=== PATIENT | male | born 1955 | race Caucasian/White ===

== ENCOUNTER 2016-04-28 06:13 | Day surgery (SDC) | payer MEDICARE, OTHER ==
[~2016-04-28] VITALS: Ht 175.3 cm; Wt 116.4 kg
[~2016-04-28 06:13] MED LIST: ASPI81TA3 PO; CIPR500T4 PO; METF500T4 PO; METR500T PO; TRAM50TA2 PO
[2016-04-28 07:37] VITALS: Ht 175.3 cm; Wt 116.4 kg
[2016-04-28 07:50] VITALS: BP 146/83; PULSE 83; RESP 24
[2016-04-28] MEDS ORDERED: EZET10TA3 PO (07:51)
[2016-04-28] MEDS ORDERED: ADV10050 INHALATION (07:51)
[2016-04-28] MEDS ORDERED: MONT4GRA PO (07:51)
[2016-04-28] MEDS ORDERED: ALBU18HF INHALATION (07:51)
[2016-04-28] MEDS ORDERED: PROPOFOL 20 ML ONE (07:51)
[2016-04-28] MEDS ORDERED: BENA5TAB2 PO (07:51)
[2016-04-28] MEDS ORDERED: METO-448 PO (07:51)
[2016-04-28] MEDS ORDERED: FENTAnyl 50 MCG/ML VIAL ONE (07:52)
[2016-04-28] MEDS ORDERED: MIDAZOLAM 1 MG/ML 2 ML INJ ONE (07:52)
[2016-04-28] MEDS ORDERED: PROPOFOL 40 ML ONE (07:56)
[2016-04-28 09:13] VITALS: BP 113/66; PULSE 73; RESP 18
--- NOTE | 2016-04-28 17:57 | GILP ---
DATE OF PROCEDURE: 04/28/2016 NAME OF PROCEDURES: 1. Colonoscopy, biopsy and polypectomy. 2. Clipping of the polypectomy site. INDICATION FOR THE PROCEDURE: Mr. Annalise Alvarado is a 61-year-old male patient who had change i n the bowel habit and left lower quadrant abdominal pain. The patient never had screening colonosco py. The procedure and possible complications are well explained to the patient, he understood and consen kait to the procedure. DESCRIPTION OF PROCEDURE: Under the influence of anesthesia, the colonoscope was carefully introduc ed in the rectum and under direct vision, it was advanced all the way to the cecum. FINDINGS: The patient had 2 right colon polyps and one of them was removed using the biopsy forceps , another one with snare and electrocautery. The patient had some bleeding after polypectomy and c lipping of the polypectomy site was done to stop the bleeding. The patient was noted to have divert iculosis of the colon. He also had internal and external hemorrhoids. The patient tolerated the procedure very well and there was no complication from the procedure. At the end of the procedure, he was awake with stable vital signs and he was discharged home to the car e of his family. IMPRESSION: 1. Colonoscopy all the way to the cecum. 2. Two right colon polyps were removed, one with the biopsy forceps and the other one with snare an d electrocautery. 3. Clipping of the polypectomy site was done to stop the bleeding. 4. Diverticulosis of the colon. 5. Internal and external hemorrhoids. PLAN: 1. Await histopathology report. 2. Next screening colonoscopy in 5 years. Dictated By: BEATRICE KAUR/WILLIE Conf#: [id number] DID#: [id number] CC: BEATRICE SWENSON MD;*EndCC*
== END 2016-04-28 12:09 | disposition home or self-care (01) ==
LOC: GIL 06:13
PROVIDERS: ATTEND Internal Medicine Gastroenterology
DX: Z12.11 Encounter for screening for malignant neoplasm of colon (principal); K63.5 Polyp of colon; K57.90 Diverticulosis of intestine, part unspecified, without perforation or abscess without bleeding; K64.4 Residual hemorrhoidal skin tags; K64.8 Other hemorrhoids; I10 Essential (primary) hypertension; E11.9 Type 2 diabetes mellitus without complications; E66.9 Obesity, unspecified; Z68.37 Body mass index [BMI] 37.0-37.9, adult
CPT/HCPCS: 45380; 82962; 88305; J2250; J3010

== ENCOUNTER 2016-07-06 22:50 | Emergency (ER) | payer MEDICARE, OTHER ==
[~2016-07-06] VITALS: Ht 175.3 cm; Wt 120.5 kg
[~2016-07-06 22:50] MED LIST changes: +ADV10050 INHALATION; +ALBU18HF INHALATION; +BENA5TAB2 PO; -CIPR500T4 PO; +EZET10TA3 PO; +METO-448 PO; -METR500T PO; +MONT4GRA PO
[2016-07-06 22:54] VITALS: Ht 175.3 cm; Wt 120.5 kg
[2016-07-06] MEDS ORDERED: ASPIRIN 81 MG TAB PO STA (23:14)
[2016-07-06] MEDS ORDERED: FAMOTIDINE 20 MG INJ IV ONE (23:30)
[2016-07-06] MEDS ORDERED: LIDOCAINE/MYLANTA 40 ML BTL PO ONE (23:30)
[2016-07-06 23:32] LABS: ADD SCAN DIFF NO
[2016-07-06 23:36] LABS: BASOPHILS % 0.5 % (0.0-2.0); EOSINOPHILS # 0.3 10^3/ul (0.0-0.5); EOSINOPHILS % 3.6 % (0.0-7.0); HEMATOCRIT 42.8 % (42.0-52.0); HEMOGLOBIN 13.6 g/dl (14.0-18.0); LYMPHOCYTES % 26.1 % (15.0-51.0); MEAN CORPUSCULAR HEMOGLOBIN 28.4 pg (29.0-33.0); MEAN CORPUSCULAR HGB CONC 31.8 g/dl (32.0-37.0); MEAN CORPUSCULAR VOLUME 89.4 fl (82.0-101.0); MEAN PLATELET VOLUME 10.2 fl (7.4-10.4); MONOCYTE # 0.7 10^3/ul (0.3-0.9); MONOCYTES % 8.4 % (0.0-11.0); NEUTROPHIL # 4.8 10^3/ul (1.6-7.5); NEUTROPHILS % 61.3 % (39.0-77.0); PLATELET COUNT 227 10^3/UL (140-415); RED BLOOD COUNT 4.79 10^6/ul (4.70-6.10); RED CELL DISTRIBUTION WIDTH 14.3 % (11.5-14.5); WHITE BLOOD COUNT 7.8 10^3/ul (4.8-10.8)
[2016-07-06 23:50] LABS: ALANINE AMINOTRANSFERASE 47 IU/L (13-69); ALBUMIN 4.3 g/dl (3.3-4.9); ALBUMIN/GLOBULIN RATIO 1.19; ALKALINE PHOSPHATASE 72 IU/L (42-121); ANION GAP 13 (8-16); ASPARTATE AMINO TRANSFERASE 39 IU/L (15-46); BILIRUBIN,INDIRECT 0.3 mg/dl (0-1.1); BILIRUBIN,TOTAL 0.3 mg/dl (0.2-1.3); BLOOD UREA NITROGEN 17 mg/dl (7-20); CALCIUM 9.5 mg/dl (8.4-10.2); CARBON DIOXIDE 29 mmol/L (21-31); CHLORIDE 100 mmol/L (97-110); CREATININE 0.79 mg/dl (0.61-1.24); GLUCOSE 174 mg/dl (70-220); POTASSIUM 4.6 mmol/L (3.5-5.1); SODIUM 137 mmol/L (135-144); TOTAL PROTEIN 7.9 g/dl (6.1-8.1)
[2016-07-07 00:03] LABS: B-TYPE NATRIURETIC PEPTIDE < 11 PG/ML (0-125); TROPONIN-I < 0.012 ng/ml (0.00-0.12)
--- NOTE | 2016-07-07 00:15 | RADRPT ---
PROCEDURE: XR Chest. CLINICAL INDICATION: Chest pain. TECHNIQUE: Single frontal chest x-ray. COMPARISON: 02/12/2017 FINDINGS: The cardiomediastinal silhouette is unremarkable. Mild elevation of the right hemidiaphragm, unchan ged.. There is no CHF or focal infiltrate.. There is no pleural effusion. There is no pneumothorax . The osseous structures are unremarkable. IMPRESSION: No CHF or acute infiltrate. Mildly elevated right hemidiaphragm, unchanged. RPTAT: HMVK .Tee Escalante MD, MD Date Time Electronically viewed and signed by .Tee Escalante MD, on 07/07/2016 00:15 .K/
[2016-07-07 00:23] LABS: INR 1.02; PROTIME 13.4 Sec (12.2-14.2)
[2016-07-07 00:24] LABS: PARTIAL THROMBOPLASTIN TIME 28.1 Sec (25.0-35.0)
[2016-07-07] MEDS ORDERED: IOHEXOL 300MG/ML 150 ML BTL ONE (01:27)
[2016-07-07] MEDS ORDERED: SOD CHLORIDE 0.9% 100 ML ONE (01:27)
[2016-07-07] MEDS ORDERED: ONDANSETRON 4 MG INJ IV STA (01:42)
[2016-07-07] MEDS ORDERED: HYDROmorphONE 1 MG/ML SYG IV STA (01:42)
--- NOTE | 2016-07-07 01:48 | RADRPT ---
PROCEDURE: CT Abdomen and pelvis with contrast. CLINICAL INDICATION: Abdominal pain. TECHNIQUE: CT scan of the abdomen and pelvis with contrast was performed on a multi-detector high -resolution CT scanner. The patient was scanned following the uncomplicated intravenous administrat ion of 100 cc of Omnipaque 300. Coronal and sagittal reformatted images were obtained from the axia l source images. Images were reviewed on a high-resolution PACS workstation. One or more of the following dose reduction techniques were used: - Automated exposure control. - Adjustment of the mA and/or kV according to patient size. - Use of iterative reconstruction technique. Exam CTD/vol = 23.35 mGy. Total exam DLP = 1860.30 mGy-cm. COMPARISON: 11/02/2015. FINDINGS: Evaluation of the lung bases demonstrates mild bibasilar atelectasis and small air cysts. Abdomen: The liver is normal in size. There is no focal mass or dilatation of the biliary tree. T he gallbladder is not distended. The spleen is normal in size with thin wall calcifications. The p ancreas and bilateral adrenal glands are within normal limits. Bilateral kidneys are normal in size with symmetric enhancement. There is a 6 x 5 mm calculus within the lower pole of the right kidney . There are small renal cysts bilaterally. There is no hydronephrosis or hydroureter. There is no retroperitoneal adenopathy. The abdominal aorta is of normal caliber with mild scattered atheroscl erotic calcifications. There is mild stranding of the mesenteric fat. There is no bowel obstruction or free air. The appe ndix is not visualized. There is colonic diverticulosis without evidence of diverticulitis. There is no ascites. Pelvis: The bladder is unremarkable. There are bilateral small inguinal hernias containing fat. T he prostate is mildly enlarged. There is no significant pelvic adenopathy or free fluid. Evaluation of the osseous structures demonstrates no suspicious lytic or blastic lesion. IMPRESSION: Mild stranding of the mesenteric fat represents nonspecific mesenteritis, new compared with the prio r study. Colonic diverticulosis without evidence of diverticulitis. Nonobstructing right renal calculus. Thin splenic wall calcifications, unchanged. Mild vascular calcifications reflective of atherosclerosis. Bilateral small renal cysts. Bilateral small inguinal hernias containing fat. Mildly enlarged prostate. .Russell Rodriguez MD, MD Date Time Electronically viewed and signed by .Russell Rodriguez MD, MD on 07/07/2016 01:48 .T/
--- NOTE | 2016-07-07 02:07 | ERD ---
ER Documentation Chief Complaint Date/Time DATE: 07/07/16 TIME: 02:06 Chief Complaint chest pain since 4 pm today HPI This is a 62-year-old male with chest pain since 4 PM today. This pain is in his epigastric region. Burning in sensation. Happened after he had Italian fries and jalapenos for months. No radiations. Mild nausea. No vomiting. No fever. No chills. No diaphoresis. No shortness of breath. ROS All systems reviewed and are negative except as per history of present illness. Medications Home Meds Active Scripts Tramadol HCl (Tramadol HCl) 50 Mg Tablet, 50 MG PO Q6, #20 TAB Prov:SY RAMOS MD 11/02/15 Reported Medications Albuterol Sulfate* (Ventolin HFA*) 18 Gm Hfa.aer.ad, 2 PUFF INHALATION Q4H, #1 INHALER 04/28/16 Montelukast Sodium (Singulair) 4 Mg Gran.pack, 4 MG PO, PACKET 04/28/16 Salmeterol Xinaf-Fluticasone* (Advair*) 100/50 Diskus Inhaler, 1 INH INHALATION BID, #1 INHALER 04/28/16 Metoprolol Tartrate* (Lopressor*) 25 Mg Tab, 25 MG PO BID, #60 TAB 04/28/16 Ezetimibe* (Zetia*) 10 Mg Tablet, 10 MG PO DAILY, TAB 04/28/16 Benazepril Hcl* (Benazepril Hcl*) 5 Mg Tablet, 5 MG PO DAILY, #30 TAB 04/28/16 Metformin* (Glucophage*) 500 Mg Tab, 500 MG PO WITH BREAKFAST DINNE, #30 TAB 11/02/15 Aspirin* (Aspirin* Chew) 81 Mg Tab.chew, 81 MG PO DAILY, TAB.CHEW 11/02/15 Allergies Allergies: Coded Allergies: Penicillins (Verified Allergy, Unknown, 11/02/15) ampicillin (Verified Allergy, Unknown, 11/02/15) azithromycin (Verified Allergy, Unknown, 11/02/15) cephalexin (Verified Allergy, Unknown, 11/02/15) Uncoded Allergies: CEPHALOSPORIN (Allergy, Unknown, 02/13/15) PMhx/Soc History of Surgery: Yes (nasal surgey X6, hernia repair, tonsilectomy, appendectomy) Anesthesia Reaction: No Hx Neurological Disorder: No Hx Respiratory Disorders: Yes (bonchial asthma) Hx Cardiac Disorders: Yes (HTN) Hx Psychiatric Problems: No Hx Miscellaneous Medical Probl: No Hx Alcohol Use: No Hx Substance Use: No Hx Tobacco Use: Yes Smoking Status: Current every day smoker Physical Exam Vitals Vital Signs Date Time Temp Pulse Resp B/P Pulse Ox O2 Delivery O2 Flow Rate FiO2 07/07/16 01:50 74 142/90 94 Room Air 07/06/16 23:29 Nasal Cannula 3 07/06/16 22:54 98.6 80 20 165/91 98 Physical Exam Const: [] Head: Atraumatic Eyes: Normal Conjunctiva ENT: Normal External Ears, Nose and Mouth. Neck: Full range of motion..~ No meningismus. Resp: Clear to auscultation bilaterally Cardio: Regular rate and rhythm, no murmurs Abd: Soft, non tender, non distended. Normal bowel sounds Skin: No petechiae or rashes Back: No midline or flank tenderness Ext: No cyanosis, or edema Neur: Awake and alert Psych: Normal Mood and Affect Result Diagram: 07/06/160 07/06/162319 Results 24 hrs Laboratory Tests Test 07/06/16 23:20 White Blood Count 7.810^3/ul Red Blood Count 4.7910^6/ul Hemoglobin 13.6g/dl Hematocrit 42.8% Mean Corpuscular Volume 89.4fl Mean Corpuscular Hemoglobin 28.4pg Mean Corpuscular Hemoglobin Concent 31.8g/dl Red Cell Distribution Width 14.3% Platelet Count 94453^3/UL Mean Platelet Volume 10.2fl Neutrophils % 61.3% Lymphocytes % 26.1% Monocytes % 8.4% Eosinophils % 3.6% Basophils % 0.5% Nucleated Red Blood Cells % 0.0/100WBC Neutrophils # 4.810^3/ul Lymphocytes # 2.010^3/ul Monocytes # 0.710^3/ul Eosinophils # 0.310^3/ul Basophils # 0.010^3/ul Nucleated Red Blood Cells # 0.010^3/ul Prothrombin Time 13.4Sec Prothrombin Time Ratio 1.0 INR International Normalized Ratio 1.02 Activated Partial Thromboplast Time 28.1Sec Sodium Level 137mmol/L Potassium Level 4.6mmol/L Chloride Level 100mmol/L Carbon Dioxide Level 29mmol/L Anion Gap 13 Blood Urea Nitrogen 17mg/dl Creatinine 0.79mg/dl Glucose Level 174mg/dl Calcium Level 9.5mg/dl Total Bilirubin 0.3mg/dl Direct Bilirubin 0.00mg/dl Indirect Bilirubin 0.3mg/dl Aspartate Amino Transf (AST/SGOT) 39IU/L Alanine Aminotransferase (ALT/SGPT) 47IU/L Alkaline Phosphatase 72IU/L Troponin I < 0.012ng/ml B-Type Natriuretic Peptide < 11PG/ML Total Protein 7.9g/dl Albumin 4.3g/dl Globulin 3.60g/dl Albumin/Globulin Ratio 1.19 Current Medications Medications (Trade) Dose Ordered Sig/Geno Route PRN Reason Start Time Stop Time Status Last Admin Dose Admin Aspirin (Aspirin) 162 mg ONCE STAT PO 07/06/16 23:14 07/06/16 23:15 DC 07/06/16 23:39 Miscellaneous Medication (Gi Cocktail (2)) 40 ml ONCE ONCE PO 07/06/16 23:30 07/06/16 23:31 DC 07/06/16 23:42 Famotidine 20 mg 20 mg ONCE ONCE IV 07/06/16 23:30 07/06/16 23:31 DC 07/06/16 23:42 Sodium Chloride (NS) 100 ml @ ud STK-MED ONCE .ROUTE 07/07/16 01:27 07/07/16 01:28 DC 07/07/16 01:44 Iohexol (Omnipaque 300mg/ ml) 150 ml STK-MED ONCE .ROUTE 07/07/16 01:27 07/07/16 01:28 DC 07/07/16 01:44 Hydromorphone HCl (Dilaudid) 1 mg ONCE STAT IV 07/07/16 01:42 07/07/16 01:43 DC 07/07/16 01:49 Ondansetron HCl (Zofran Inj) 4 mg ONCE STAT IV 07/07/16 01:42 07/07/16 01:43 DC 07/07/16 01:49 Procedures/MDM EKG: Rate/Rhythm: [Normal Sinus Rhythm] QRS, ST, T-waves: [No changes consistent w/ acute ischemia] Impression: [No evidence of ischemia or arrhythmia] Chest X-ray 1V Interpreted by me: Soft Tissue: No acute abnormalities Bones: No acute abnormalities Mediastinum/Cardiac Silhouette/Lungs: [No acute abnormalities] Patient's thoracic symptoms have stabilized while in the department and are stable for outpatient follow up. Exam and work up not consistent w/ ischemia, arrhythmia, PE or dissection. Symptomology is consistent with acute gastritic symptoms. He does show some mild mesenteric adenitis on CT. Cardiac workup is negative. Pain is now resolved. Patient will be discharged home with Zantac, Carafate, tramadol. Follow-up in 8 hours for serial abdominal exams. Return immediately via 911 for any chest pain. Departure Diagnosis: Primary Impression: Abdominal pain Abdominal location: epigastric Qualified Code: R10.13 - Epigastric pain Additional Impression: Gastritis Gastritis type: unspecified gastritis Chronicity: acute Gastritis bleeding : without bleeding Qualified Code: K29.00 - Acute gastritis without hemorrhage, unspecified gastritis type Condition: Stable SUMAYA KOCH Jul 07, 2016 02:07
[2016-07-07] MEDS ORDERED: RANI150T9 PO (02:10)
[2016-07-07] MEDS ORDERED: SUCR1TAB56 PO (02:10)
[2016-07-07] MEDS ORDERED: TRAM50TA2 PO (02:10)
[2016-07-07 02:44] VITALS: BP 149/89; PULSE 70; RESP 17
== END 2016-07-07 02:44 | disposition home or self-care (01) ==
LOC: E/R 22:50
DX: R10.13 Epigastric pain (principal); K29.00 Acute gastritis without bleeding; I10 Essential (primary) hypertension; F17.210 Nicotine dependence, cigarettes, uncomplicated; E11.9 Type 2 diabetes mellitus without complications; R11.0 Nausea; Z79.82 Long term (current) use of aspirin; Z79.84 Long term (current) use of oral hypoglycemic drugs
CPT/HCPCS: 36415; 71010; 74177; 80053; 83880; 84484; 85025; 85610; 85730; 93005; 96374; 96375; 99285; J1170; J2405; Q9967

== ENCOUNTER 2016-08-13 11:58 | Emergency (ER) | payer MEDICARE, OTHER ==
[~2016-08-13] VITALS: Ht 165.1 cm; Wt 119.0 kg
[~2016-08-13 11:58] MED LIST changes: +RANI150T9 PO; +SUCR1TAB56 PO
[2016-08-13 11:59] VITALS: Ht 165.1 cm; Wt 119.0 kg
[2016-08-13] MEDS ORDERED: ONDANSETRON 4 MG INJ IV STA (12:45)
[2016-08-13] MEDS ORDERED: morphine 4 MG/ML VIAL IV STA (12:45)
[2016-08-13] MEDS ORDERED: SODIUM CHLORIDE 0.9% 1L BAG IV* STA (12:45)
[2016-08-13] MEDS ORDERED: CEFTRIAXONE 1 GM/50 ML (PMX) 50 ML IVPB ONE (13:00)
[2016-08-13] MEDS ORDERED: IBUPROFEN 600 MG TAB PO ONE (13:00)
[2016-08-13] MEDS ORDERED: BENA20TA48 PO (13:22)
[2016-08-13] MEDS ORDERED: METO25TA7 PO (13:25)
[2016-08-13] MEDS ORDERED: ADV25050 INHALATION (13:26)
[2016-08-13] MEDS ORDERED: POTA8TAB2 PO (13:28)
[2016-08-13] MEDS ORDERED: FURO40TA4 PO (13:29)
[2016-08-13] MEDS ORDERED: LORA1TAB PO (13:29)
[2016-08-13 13:30] LABS: ADD SCAN DIFF NO
[2016-08-13] MEDS ORDERED: FLUT16SP17 NASAL (13:30)
[2016-08-13 13:31] LABS: ABNORMAL IP MESSAGE 1; BASOPHILS % 0.4 % (0.0-2.0); EOSINOPHILS # 0.1 10^3/ul (0.0-0.5); EOSINOPHILS % 1.7 % (0.0-7.0); HEMATOCRIT 45.7 % (42.0-52.0); HEMOGLOBIN 15.2 g/dl (14.0-18.0); LYMPHOCYTES # 0.5 10^3/ul (0.8-2.9); LYMPHOCYTES % 6.2 % (15.0-51.0); MEAN CORPUSCULAR HGB CONC 33.3 g/dl (32.0-37.0); MEAN CORPUSCULAR VOLUME 87.2 fl (82.0-101.0); MEAN PLATELET VOLUME 10.6 fl (7.4-10.4); MONOCYTE # 0.4 10^3/ul (0.3-0.9); NEUTROPHIL # 7.3 10^3/ul (1.6-7.5); NEUTROPHILS % 86.5 % (39.0-77.0); PLATELET COUNT 233 10^3/UL (140-415); RED BLOOD COUNT 5.24 10^6/ul (4.70-6.10); RED CELL DISTRIBUTION WIDTH 14.3 % (11.5-14.5); WHITE BLOOD COUNT 8.4 10^3/ul (4.8-10.8)
[2016-08-13 13:34] LABS: ADD UMIC YES; URINE BILIRUBIN (Dip) NEGATIVE (NEGATIVE); URINE BLOOD (Dip) TRACE (NEGATIVE); URINE COLOR LT. YELLOW (YELLOW); URINE GLUCOSE (Dip) NEGATIVE (NEGATIVE); URINE KETONES (Dip) NEGATIVE (NEGATIVE); URINE LEUKOCYTE ESTERASE (Dip) NEGATIVE (NEGATIVE); URINE NITRITE (Dip) NEGATIVE (NEGATIVE); URINE TOTAL PROTEIN (Dip) TRACE (NEGATIVE); URINE UROBILINOGEN (Dip) 0.2 E.U./dL (0.1-1.0)
[2016-08-13] MEDS ORDERED: TRAM-40 PO (13:36)
[2016-08-13] MEDS ORDERED: TAMS0.4C2 PO (13:36)
[2016-08-13] MEDS ORDERED: ALBU18HF INHALATION (13:36)
[2016-08-13] MEDS ORDERED: MELO-110 PO (13:37)
[2016-08-13] MEDS ORDERED: ESOM40CA PO (13:37)
[2016-08-13] MEDS ORDERED: DULA1.5P SQ (13:38)
--- NOTE | 2016-08-13 13:39 | RADRPT ---
PROCEDURE: Chest x-ray CLINICAL INDICATION: Chest pain TECHNIQUE: Chest single view COMPARISON: 07/06/2016 FINDINGS: There is stable mild cardiomegaly.. The pulmonary vessels are normal in caliber. The lungs are ilene ar. The costophrenic angles are sharp. The visualized bony thorax is unremarkable. IMPRESSION: No acute cardiopulmonary disease. Stable mild cardiomegaly RPTAT: HH .Reagan Yang MD, MD Date Time Electronically viewed and signed by .Reagan Yang MD, on 08/13/2016 13:38 .W/
[2016-08-13 13:46] LABS: ALBUMIN 4.8 g/dl (3.3-4.9)
[2016-08-13 13:47] LABS: CHLORIDE 98 mmol/L (97-110); POTASSIUM 4.2 mmol/L (3.5-5.1); PROTIME 13.2 Sec (12.2-14.2); SODIUM 138 mmol/L (135-144)
[2016-08-13 13:48] LABS: PARTIAL THROMBOPLASTIN TIME 27.6 Sec (25.0-35.0)
[2016-08-13 13:49] LABS: ALBUMIN/GLOBULIN RATIO 1.26; ANION GAP 20 (8-16); ASPARTATE AMINO TRANSFERASE 49 IU/L (15-46); BILIRUBIN,INDIRECT 0.8 mg/dl (0-1.1); BILIRUBIN,TOTAL 0.8 mg/dl (0.2-1.3); CARBON DIOXIDE 24 mmol/L (21-31); CREATININE 0.77 mg/dl (0.61-1.24); TOTAL PROTEIN 8.6 g/dl (6.1-8.1)
[2016-08-13 13:50] LABS: ALANINE AMINOTRANSFERASE 62 IU/L (13-69); ALKALINE PHOSPHATASE 80 IU/L (42-121); BLOOD UREA NITROGEN 20 mg/dl (7-20); CALCIUM 9.6 mg/dl (8.4-10.2); GLUCOSE 131 mg/dl (70-220)
[2016-08-13 13:53] LABS: BACTERIA,URINE RARE; URINE RBCS 0-2 /HPF (0)
[2016-08-13 14:04] LABS: TROPONIN-I < 0.012 ng/ml (0.00-0.12)
--- NOTE | 2016-08-13 14:47 | RADRPT ---
PROCEDURE: CT abdomen and pelvis without contrast. CLINICAL INDICATION: Sepsis. Pain. TECHNIQUE: CT of the abdomen and pelvis without contrast was performed on a multidetector high-resolution CT [facility]. Coronal and sagittal reformatted images were obtained from the axial source images. Images we re reviewed on a high-resolution PACS workstation. The total exam CTDI equals 23.62 mGy and the tota l exam DLP equals 1590.06 mGy-cm. One or more of the following dose reduction techniques were used: - Automated exposure control. - Adjustment of the mA and/or kV according to patient size. - Use of iterative reconstruction technique. COMPARISON: CT dated 07/07/2016. FINDINGS: Visualized lower thorax: There is subsegmental atelectasis in the visualized right middle lobe and there is mild centrilobula r emphysema. There is a calcified nodule at the left lower lobe, consistent with prior granulomatou s disease. The visualized heart is unremarkable. Hepatobiliary system and spleen: The liver is grossly unremarkable. There is no intra or extrahepatic biliary ductal dilatation. The gallbladder is grossly unremarkable. There is a thin peripheral calcification at the lateral splenic margin, which may be the sequela of prior trauma. The spleen is otherwise grossly unremarkable. Th e pancreas is grossly unremarkable. Adrenal glands and genitourinary system: The adrenal glands are grossly unremarkable. There is a 5 mm nonobstructing stone at the lower pole of the right kidney and a 2 cm cyst at the midportion of the left kidney. There is no hydronephrosi s. The urinary bladder is grossly unremarkable. The prostate gland is large measuring 5.5 cm in axia l dimension. The seminal vesicles are grossly unremarkable. There are small bilateral fat containin g inguinal hernias. Gastrointestinal system: The stomach and small bowel are unremarkable. There is no bowel wall thickening or evidence of obstr uction. There is pancolonic diverticulosis without evidence of diverticulitis. The appendix is not i dentified, but there are no secondary findings of appendicitis. Peritoneum, vascular, and lymphatics: There is no free intraperitoneal air or free fluid. There is an enlarged periportal lymph node measu ring 1.4 cm in short axis. There are additional periportal, retroperitoneal, and mesenteric lymph n odes that are not enlarged, but are notable for number rather than size. There are atherosclerotic c hanges of the aorta, which is nonaneurysmal. Musculoskeletal system: There are no concerning osseous lesions. There is advanced facet arthropathy in the lower lumbosacra l spine with associated grade 1 anterolisthesis of L4 on L5 and grade 1 retrolisthesis of L5 on S1. There is also moderate multilevel degenerative spondylosis. IMPRESSION: 1. No acute abnormality or findings to suggest a source of the patient's symptoms. 2. Nonobstructing 5 mm stone at the lower pole of the right kidney. 3. Pancolonic diverticulosis without evidence of diverticulitis. 4. Enlarged prostate gland. Correlate with PSA. 5. Small bilateral fat containing inguinal hernias. 6. Mild centrilobular emphysema at the lung bases and pulmonary findings of prior granulomatous dis ease. 7. Vascular calcifications consistent with atherosclerosis. 8. Advanced facet arthropathy in the lower lumbosacral spine with associated grade 1 anterolisthesi s of L4 on L5 and grade 1 retrolisthesis of L5 on S1. RPTAT: GG .Beny Mtz MD, MD Date Time Electronically viewed and signed by .Beny Mtz MD, on 08/13/2016 14:47 .P/
--- NOTE | 2016-08-13 15:27 | ERD ---
ER Documentation Chief Complaint Date/Time DATE: 08/13/16 TIME: 15:26 Chief Complaint AP W/NAUSEA X2 DAYS HPI 61-year-old man complains of mild left lower quadrant abdominal cramping 2 days he also suspects an upper respiratory tract infection and complains of nasal congestion and mild cough. He denies blood per rectum or melena, no diarrhea, no chest pain or shortness of breath, no headache or blurry vision, no neck pain or stiffness, no recent travel, no sick contacts, no dysuria. He states the abdominal pain has been cramping, nonexertional and nonradiating. ROS All systems reviewed and are negative except as per history of present illness. Medications Home Meds Active Scripts Albuterol Sulfate* (Proair HFA*) 8.5 Gm Hfa.aer.ad, 2 PUFF INH Q6H Y for WHEEZING AND SOB, #1 INHALER Prov:RISSA JOSEPH MD 08/13/16 Levofloxacin* (Levaquin*) 500 Mg Tablet, 500 MG PO DAILY for 7 Days, TAB Prov:RISSA JOSEPH MD 08/13/16 Ibuprofen* (Ibuprofen*) 600 Mg Tablet, 600 MG PO Q8 for FEVER, #30 TAB Prov:RISSA JOSEPH MD 08/13/16 Ranitidine Hcl* (Zantac*) 150 Mg Tablet, 150 MG PO BID Y for EPIGASTRIC PAIN, # 30 TAB Prov:SUMAYA KOCH 07/07/16 Sucralfate* (Carafate*) 1 Gm Tab, 1 GM PO QID, #30 TAB Prov:SUMAYA KOCH 07/07/16 Reported Medications Dulaglutide (Trulicity) 1.5 Mg/0.5 Ml Pen.injctr, 1.5 MG SQ DAILY 08/13/16 Esomeprazole Mag Trihydrate (Nexium) 40 Mg Capsule.dr, 40 MG PO DAILY, #30 CAP 08/13/16 Meloxicam* (Mobic*) 15 Mg Tablet, 15 MG PO DAILY, #30 TAB 08/13/16 Albuterol Sulfate* (Ventolin HFA*) 18 Gm Hfa.aer.ad, 2 PUFF INHALATION Q6H Y for SHORTNESS OF BREATH, #1 INHALER 08/13/16 Tamsulosin Hcl* (Tamsulosin Hcl*) 0.4 Mg Cap.er.24h, 0.4 MG PO HS, CAP 08/13/16 Tramadol Hcl* (Ultram*) 50 Mg Tablet, 50 MG PO Q6H Y for PAIN, TAB 08/13/16 Fluticasone Propionate* (Fluticasone Propionate* Nasal) 50 Mcg/[place] - 16 Gm [place].susp, 1 SPRAY NASAL BID, #1 BOTTLE TO EACH NOSTRIL 08/13/16 Furosemide* (Furosemide*) 40 Mg Tablet, 40 MG PO DAILY, TAB 08/13/16 Lorazepam* (Lorazepam*) 1 Mg Tablet, 1 MG PO HS Y for SLEEP, #30 TAB 08/13/16 Potassium Chloride* (Klor-Con*) 8 Meq Tablet.sa, 8 MEQ PO DAILY, TAB 08/13/16 Salmeterol Xinaf/Fluticasone* (Advair*) 250-50 Diskus Inhaler, 1 INH INHALATION BID, #1 INHALER 08/13/16 Metoprolol Succinate* (Toprol XL*) 25 Mg Tab.sr.24h, 25 MG PO DAILY, #30 TAB 08/13/16 Benazepril Hcl* (Benazepril Hcl*) 20 Mg Tablet, 20 MG PO DAILY, #30 TAB 08/13/16 Montelukast Sodium (Singulair) 4 Mg Gran.pack, 4 MG PO, PACKET 04/28/16 Ezetimibe* (Zetia*) 10 Mg Tablet, 10 MG PO DAILY, TAB 04/28/16 Metformin* (Glucophage*) 500 Mg Tab, 500 MG PO WITH BREAKFAST DINNE, #30 TAB 11/02/15 Discontinued Reported Medications Albuterol Sulfate* (Ventolin HFA*) 18 Gm Hfa.aer.ad, 2 PUFF INHALATION Q4H, #1 INHALER 04/28/16 Salmeterol Xinaf-Fluticasone* (Advair*) 100/50 Diskus Inhaler, 1 INH INHALATION BID, #1 INHALER 04/28/16 Metoprolol Tartrate* (Lopressor*) 25 Mg Tab, 25 MG PO BID, #60 TAB 04/28/16 Benazepril Hcl* (Benazepril Hcl*) 5 Mg Tablet, 5 MG PO DAILY, #30 TAB 04/28/16 Aspirin* (Aspirin* Chew) 81 Mg Tab.chew, 81 MG PO DAILY, TAB.CHEW 11/02/15 Discontinued Scripts Tramadol HCl (Tramadol HCl) 50 Mg Tablet, 50 MG PO Q4 Y for PAIN, #20 TAB Prov:SUMAYA KOCH 07/07/16 Tramadol HCl (Tramadol HCl) 50 Mg Tablet, 50 MG PO Q6, #20 TAB Prov:SY RAMOS MD 11/02/15 Allergies Allergies: Coded Allergies: Penicillins (Verified Allergy, Unknown, 08/13/16) ampicillin (Verified Allergy, Unknown, 08/13/16) azithromycin (Verified Allergy, Unknown, 08/13/16) cephalexin (Verified Allergy, Unknown, 08/13/16) Uncoded Allergies: CEPHALOSPORIN (Allergy, Unknown, 02/13/15) PMhx/Soc Obesity, diabetes mellitus, hypertension, chronic obstructive pulmonary disease History of Surgery: Yes (nasal surgey X6, hernia repair, tonsilectomy, appendectomy) Anesthesia Reaction: No Hx Neurological Disorder: No Hx Respiratory Disorders: Yes (bonchial asthma) Hx Cardiac Disorders: Yes (HTN) Hx Psychiatric Problems: No Hx Miscellaneous Medical Probl: No Hx Alcohol Use: No Hx Substance Use: No Hx Tobacco Use: Yes Smoking Status: Former smoker FmHx Family History: No diabetes Physical Exam Vitals Vital Signs Date Time Temp Pulse Resp B/P Pulse Ox O2 Delivery O2 Flow Rate FiO2 08/13/16 14:07 Nasal Cannula 08/13/16 11:59 101.1 113 22 136/79 95 Physical Exam GENERAL: Well-developed, well-nourished, febrile, no apparent distress HEENT: Moist mucous membranes, pink conjunctiva, no cervical spine tenderness or step-off deformities, no goiter, no jaundice or icterus, extraocular movements intact without pain. No submandibular induration, and no pharyngeal erythema NEURO: Alert and oriented 3, cranial nerves II through XII intact bilaterally, pupils equal round reactive to light, no focal deficits or facial asymmetry, sensation intact distally Strength 5/5 in upper and lower extremities bilaterally CARDIAC: Regular rate and rhythm, no murmurs rubs or gallops LUNGS: Clear bilaterally no wheezing crackles or stridor ABDOMEN: Soft nontender, no guarding, no rigidity, no rebound, no psoas sign no obturator sign. Normoactive bowel sounds SKIN: Warm and dry to touch, no abrasions, contusions, or hematomas, no lacerations, no ecchymosis, no target lesions, and without ulcers EXTREMITIES: No clubbing cyanosis or edema, calves are bilaterally symmetrical, no Homans sign, no popliteal cord sign. Distal pulses equal and bilateral PSYCH: Normal affect without agitation or irritability Result Diagram: 08/13/16 1305 08/13/16 1305 Results 24 hrs Laboratory Tests Test 08/13/16 13:00 08/13/16 13:05 08/13/16 15:40 Urine Color LT. YELLOW Urine Clarity CLEAR Urine pH 6.0 Urine Specific [place] 1.025 Urine Ketones NEGATIVE Urine Nitrite NEGATIVE Urine Bilirubin NEGATIVE Urine Urobilinogen 0.2 E.U./dL Urine Leukocyte Esterase NEGATIVE Urine Microscopic RBC 0-2/HPF Urine Microscopic WBC 0-2/HPF Urine Epithelial Cells RARE Urine Bacteria RARE Urine Hemoglobin TRACE Urine Glucose NEGATIVE% Urine Total Protein TRACE White Blood Count 8.410^3/ul Red Blood Count 5.2410^6/ul Hemoglobin 15.2g/dl Hematocrit 45.7% Mean Corpuscular Volume 87.2fl Mean Corpuscular Hemoglobin 29.0pg Mean Corpuscular Hemoglobin Concent 33.3g/dl Red Cell Distribution Width 14.3% Platelet Count 19289^3/UL Mean Platelet Volume 10.6fl Neutrophils % 86.5% Lymphocytes % 6.2% Monocytes % 5.0% Eosinophils % 1.7% Basophils % 0.4% Nucleated Red Blood Cells % 0.0/100WBC Neutrophils # 7.310^3/ul Lymphocytes # 0.510^3/ul Monocytes # 0.410^3/ul Eosinophils # 0.110^3/ul Basophils # 0.010^3/ul Nucleated Red Blood Cells # 0.010^3/ul Prothrombin Time 13.2Sec Prothrombin Time Ratio 1.0 INR International Normalized Ratio 1.00 Activated Partial Thromboplast Time 27.6Sec Sodium Level 138mmol/L Potassium Level 4.2mmol/L Chloride Level 98mmol/L Carbon Dioxide Level 24mmol/L Anion Gap 20 Blood Urea Nitrogen 20mg/dl Creatinine 0.77mg/dl Glucose Level 131mg/dl Lactic Acid Level 2.2mmol/L 1.3mmol/L Calcium Level 9.6mg/dl Total Bilirubin 0.8mg/dl Direct Bilirubin 0.00mg/dl Indirect Bilirubin 0.8mg/dl Aspartate Amino Transf (AST/SGOT) 49IU/L Alanine Aminotransferase (ALT/SGPT) 62IU/L Alkaline Phosphatase 80IU/L Troponin I < 0.012ng/ml Total Protein 8.6g/dl Albumin 4.8g/dl Globulin 3.80g/dl Albumin/Globulin Ratio 1.26 Lipase 49U/L Current Medications Medications (Trade) Dose Ordered Sig/Geno Route PRN Reason Start Time Stop Time Status Last Admin Dose Admin Sodium Chloride 3000 ml 3,000 ml BOLUS OVER 2 HOURS STAT IV* 08/13/16 12:45 08/13/16 12:47 DC 08/13/16 13:19 Ceftriaxone Sodium (Rocephin) 50 ml @ 100 mls/hr ONCE ONCE IVPB 08/13/16 13:00 08/13/16 13:29 DC 08/13/16 13:18 Ibuprofen (Motrin) 600 mg ONCE ONCE PO 08/13/16 13:00 08/13/16 13:01 DC 08/13/16 13:18 Morphine Sulfate (morphine) 4 mg ONCE STAT IV 08/13/16 12:45 08/13/16 12:47 DC 08/13/16 13:19 Ondansetron HCl (Zofran Inj) 4 mg ONCE STAT IV 08/13/16 12:45 08/13/16 12:47 DC 08/13/16 13:18 Ketorolac Tromethamine (Toradol) 15 mg ONCE STAT IV 08/13/16 16:56 08/13/16 16:58 DC Procedures/MDM IV line was established patient was placed on phototypesetting equipment monitor rhythm strip revealed a sinus rhythm at about 90 bpm with upright P and T waves. Patient was febrile. EKG performed, read by me: 93 bpm, normal sinus rhythm, normal axis, no acute ST segment changes, narrow QRS complex, with good R-wave progression in precordial leads. Chest X-ray 1V Interpreted by me: Soft Tissue: No acute abnormalities Bones: No acute abnormalities Mediastinum/Cardiac Silhouette/Lungs: No acute abnormalities I do not suspect sepsis and do not feel 30 cc/kg crystalloid IV therapy is needed in this patient. Patient was given 3 L normal saline intravenously, and ibuprofen 600 mg p.o. I also administered ceftriaxone 1 g IV. For initial complaints of pain I did administer morphine 4 mg IV and Zofran 4 mg IV with resolution of his symptoms. CT scan of the abdomen and pelvis was performed there was no acute inflammatory infectious pathology. No acute diverticulitis noted. He is refer to radiologist dictation for full report. CBC was normal, electrolytes revealed mild dehydration, liver function tests normal, troponin negative, lactic acid elevated at 2.2. Repeat lactic acid level was low at 1.3. Patient is completely asymptomatic at this time and vital signs are normal, he looks well will be managed as an outpatient with albuterol pump as needed, ibuprofen, Levaquin daily 5 days. Differential diagnoses considered, included but not limited to acute coronary syndrome, pulmonary embolism, aortic dissection, abdominal aortic aneurysm, sepsis, stroke, meningitis, encephalitis, pneumonia, appendicitis, cholecystitis , bowel obstruction, pyelonephritis, nephrolithiasis, cystitis, as well as metabolic, hematologic, and electrolyte abnormalities. As well as abscess, cellulitis, fractures, and dislocations. Patient feels much better at this time, and vital signs are normal, symptoms have improved. I did give strict instructions to return to the ED if symptoms continue or worsen, patient will otherwise follow-up with primary care physician. Patient understood instructions and agreed to plan. Disclaimer: Inadvertent spelling or grammatical errors are likely due to EHR/ dictation software use and do not reflect on the overall quality of patient care. Departure Diagnosis: Primary Impression: Abdominal pain Abdominal location: left lower quadrant Qualified Code: R10.32 - Left lower quadrant pain Additional Impressions: Fever Fever type: unspecified Qualified Code: R50.9 - Fever, unspecified fever cause Bronchitis Condition: Good RISSA JOSEPH MD August 13, 2016 15:27
[2016-08-13] MEDS ORDERED: LEVO500T72 PO (16:48)
[2016-08-13] MEDS ORDERED: ALBU8.5H3 INH (16:48)
[2016-08-13] MEDS ORDERED: IBUP-1542 PO (16:48)
[2016-08-13] MEDS ORDERED: KETOROLAC 15 MG INJ IV STA (16:56)
== END 2016-08-13 17:23 | disposition home or self-care (01) ==
LOC: E/R 11:58
DX: R10.32 Left lower quadrant pain (principal); R50.9 Fever, unspecified; J20.9 Acute bronchitis, unspecified; I10 Essential (primary) hypertension; E11.9 Type 2 diabetes mellitus without complications; E66.9 Obesity, unspecified; J44.9 Chronic obstructive pulmonary disease, unspecified; Z68.42 Body mass index [BMI] 45.0-49.9, adult; Z87.891 Personal history of nicotine dependence; Z79.82 Long term (current) use of aspirin; Z79.84 Long term (current) use of oral hypoglycemic drugs
CPT/HCPCS: 71010; 74176; 80053; 81001; 83605; 83690; 84484; 85025; 85610; 85730; 87040; 87086; 93005; J0696; J1885; J2270; J2405; J7030; 36415; 81003; 96374; 96375